=== PATIENT | male | born 1960 | race Caucasian/White ===

== ENCOUNTER 2024-09-27 15:04 | Emergency (ER) | payer OTHER ==
[~2024-09-27] VITALS: Ht 177.8 cm; Wt 90.0 kg
[2024-09-27 15:05] VITALS: O2SAT 97
[2024-09-27] MEDS: FAMOTIDINE 20MG/2ML VIAL IV ONE (16:06)
[2024-09-27] MEDS: ONDANSETRON HCL 4MG/2ML INJ IV ONE (16:06)
[2024-09-27] MEDS: MAGNESIUM/ALUMINUM HYDROXIDE/SIMETHICONE 30ML UDC PO STA (16:07)
[2024-09-27] MEDS: SODIUM CHLORIDE 0.9% 1,000 ML IV ONE (16:07)
[2024-09-27 16:14] LABS: CLARITY URINE CLEAR (CLEAR); COLOR URINE YELLOW (YELLOW); GLUCOSE URINE NEGATIVE (NEGATIVE); KETONES URINE 1+ (NEGATIVE); LEUKOCYTE ESTERASE URINE NEGATIVE (NEGATIVE); NITRITE URINE NEGATIVE (NEGATIVE); OCCULT BLOOD URINE NEGATIVE (NEGATIVE); PROTEIN URINE NEGATIVE (NEGATIVE); SPECIFIC GRAVITY URINE 1.026 (1.005-1.030); UROBILINOGEN URINE 0.2 E.U./dL (0.2-1.0)
[2024-09-27] MEDS: LOPERAMIDE 2MG/15ML UDC PO ONE (16:31)
[2024-09-27] MEDS: VISCOUS LIDOCAINE 2% 15 ML UDC PO STA (16:35)
[2024-09-27 16:37] LABS: CARBON DIOXIDE 25 mEq/L (21-32); CHLORIDE 107 mEq/L (98-107); POTASSIUM 4.3 mEq/L (3.5-5.1); SODIUM 142 mEq/L (136-145)
[2024-09-27 16:38] LABS: CALCIUM 9.7 mg/dL (8.7-10.4)
[2024-09-27 16:42] LABS: CREATININE 1.1 mg/dL (0.6-1.3)
[2024-09-27 16:43] LABS: GLUCOSE 130 mg/dL (70-105); UREA NITROGEN BLOOD 15 mg/dL (9-23)
[2024-09-27 16:44] LABS: ALANINE AMINOTRANSFERASE 23 IU/L (10-49); ALBUMIN 4.7 g/dL (3.2-4.8); ASPARTATE AMINOTRANSFERASE 25 IU/L (<34)
[2024-09-27 16:45] LABS: BILIRUBIN DIRECT 0.6 mg/dL (<=3.0); BILIRUBIN TOTAL 2.2 mg/dL (0.1-1.0); PROTEIN TOTAL 7.5 g/dL (6.0-8.3)
[2024-09-27 16:47] LABS: HEMATOCRIT. 47.5 % (42.0-52.0); HEMOGLOBIN. 16.1 g/dL (14.0-18.0); MEAN CORPUSCULAR HEMOGLOBIN 29.8 pg (28.0-32.0); MEAN CORPUSCULAR HGB CONC 33.9 g/dL (31.0-37.0); MEAN CORPUSCULAR VOLUME 87.7 fL (80.0-94.0); MEAN PLATELET VOLUME 9.1 fl (7.4-10.4); PLATELET 214 x1000/uL (130-400); RED BLOOD CELL COUNT 5.42 mill/uL (4.7-6.1); RED CELL DISTRIBUTION WIDTH 13.3 % (11.6-14.6); WHITE BLOOD COUNT 13.7 x1000/uL (4.5-11.0)
[2024-09-27 16:52] LABS: ETHANOL BLOOD < 10 mg/dL (<10); TROPONIN I HIGH SENSITIVITY < 4 ng/L (3.0-53)
[2024-09-27 16:53] LABS: DIFFERENTIAL COMMENT 1
[2024-09-27 17:33] LABS: PLATELET ESTIMATE NORMAL
[2024-09-27 19:48] VITALS: TEMP 37.1
[2024-09-27 21:20] VITALS: BP 101/63; PULSE 75; RESP 19; O2SAT 96
[2024-09-27] MEDS: AZITHROMYCIN 500 MG TABLET PO ONE (21:30)
== END 2024-09-27 21:30 | disposition home or self-care (01) ==
LOC: ER 15:04
DX: R55 Syncope and collapse (principal); R11.2 Nausea with vomiting, unspecified; R19.7 Diarrhea, unspecified; I25.10 Atherosclerotic heart disease of native coronary artery without angina pectoris; I48.91 Unspecified atrial fibrillation
CPT/HCPCS: 80076; 80048; 81003; 80320; 83880; 83690; 85025; 84484; 36415; 71045; 93005; 96361; 96374; 96375; 99285; J3490; J2405; J7030; G0480